=== PATIENT | male | born 1985 | race Caucasian/White ===

== ENCOUNTER 2017-11-12 12:58 | Emergency (ER) | payer MEDICAID ==
[~2017-11-12] VITALS: Ht 180.3 cm; Wt 102.1 kg
[2017-11-12 13:15] VITALS: Ht 180.3 cm; Wt 102.1 kg
[2017-11-12 15:34] LABS: BASOPHIL % 0.7 % (0-2); PLATELET COUNT 247 x10^3mcL (130-400); RED CELL DISTRIBUTION WIDTH 14.4 % (11.5-14.5)
[2017-11-12 15:43] LABS: CALCIUM 8.8 mg/dL (8.5-10.1); CARBON DIOXIDE 29.2 mmol/L (21-32); CHLORIDE SERUM 98 mmol/L (98-107); GFR1 > 60 mL/min; GLUCOSE SERUM 82 mg/dL (74-106); POTASSIUM SERUM 3.5 mmol/L (3.5-5.1); SODIUM SERUM 129 mmol/L (136-145)
[2017-11-12 15:50] LABS: ALBUMIN 3.9 g/dL (3.4-5.0); ALKALINE PHOSPHATASE 56 U/L (46-116); ALT/SGPT 103 U/L (16-63); AST/SGOT 35 U/L (15-37); BILIRUBIN TOTAL 0.56 mg/dL (0.20-1.00); LIPASE 72 IU/L (73-393); TOTAL PROTEIN, SERUM 8.3 g/dL (6.4-8.2)
[2017-11-12 19:04] LABS: CALCIUM 8.1 mg/dL (8.5-10.1); CARBON DIOXIDE 27.2 mmol/L (21-32); CHLORIDE SERUM 103 mmol/L (98-107); CREATININE SERUM 0.9 mg/dL (0.7-1.3); GFR1 > 60 mL/min; GLUCOSE SERUM 85 mg/dL (74-106); POTASSIUM SERUM 3.7 mmol/L (3.5-5.1); SODIUM SERUM 136 mmol/L (136-145)
[2017-11-12 20:29] VITALS: BP 147/65
== END 2017-11-12 20:29 | disposition home or self-care (01) ==
LOC: ED 12:58
PROVIDERS: Emergency Medicine
DX: K22.6 Gastro-esophageal laceration-hemorrhage syndrome (principal)
CPT/HCPCS: C9113; J7030

== ENCOUNTER 2018-01-11 12:27 | Inpatient (IN) | payer MEDICAID ==
[~2018-01-11] VITALS: Ht 177.8 cm; Wt 80.5 kg
[2018-01-11 12:37] VITALS: Ht 177.8 cm; Wt 80.5 kg
[2018-01-11 13:21] LABS: BASOPHIL % 0.3 % (0-2); PLATELET COUNT 269 x10^3mcL (130-400)
[2018-01-11 13:22] LABS: RED CELL DISTRIBUTION WIDTH 15.1 % (11.5-14.5)
[2018-01-11 13:43] LABS: CALCIUM 9.5 mg/dL (8.5-10.1); CARBON DIOXIDE 30.6 mmol/L (21-32); CHLORIDE SERUM 102 mmol/L (98-107); GFR1 > 60 mL/min; GLUCOSE SERUM 70 mg/dL (74-106); POTASSIUM SERUM 3.7 mmol/L (3.5-5.1); SODIUM SERUM 138 mmol/L (136-145)
[2018-01-11 13:49] LABS: ALBUMIN 4.2 g/dL (3.4-5.0); ALKALINE PHOSPHATASE 38 U/L (46-116); ALT/SGPT 87 U/L (16-63); AST/SGOT 219 U/L (15-37); BILIRUBIN TOTAL 0.3 mg/dL (0.20-1.00)
[2018-01-11 13:50] LABS: TOTAL PROTEIN, SERUM 8.4 g/dL (6.4-8.2)
[2018-01-11 13:55] LABS: T3 TOTAL 1.39 ng/mL
[2018-01-11 13:58] LABS: FREE T4 0.97 ng/dL (0.76-1.46); FREE THYROXINE INDEX 2.1 ug/dL (1.4-4.5)
[2018-01-11 15:59] VITALS: BP 121/64
[2018-01-11 16:35] LABS: CHOLESTEROL/HDL RATIO 4.5; PHOSPHOROUS 3.8 mg/dL (2.5-4.9)
[2018-01-11 20:37] LABS: microscopic required? NO
[2018-01-11 21:12] VITALS: BP 107/50
[2018-01-11 21:25] LABS: UA SPECIFIC GRAVITY >=1.030 (1.005-1.035); urine erythrocyte NEGATIVE (NEGATIVE)
[2018-01-11 21:34] LABS: AMPHETAMINE QUAL UR NONE DETECTED (See below)
[2018-01-11 22:40] VITALS: BP 126/46
[2018-01-12 05:07] VITALS: BP 115/60
[2018-01-12 06:59] LABS: BASOPHIL % 0.3 % (0-2); PLATELET COUNT 237 x10^3mcL (130-400)
[2018-01-12 07:12] LABS: CALCIUM 8.6 mg/dL (8.5-10.1); CARBON DIOXIDE 28.2 mmol/L (21-32); CHLORIDE SERUM 103 mmol/L (98-107); CREATININE SERUM 0.8 mg/dL (0.7-1.3); GFR1 > 60 mL/min; GLUCOSE SERUM 107 mg/dL (74-106); POTASSIUM SERUM 4.1 mmol/L (3.5-5.1); SODIUM SERUM 136 mmol/L (136-145)
[2018-01-12 07:33] LABS: RED CELL DISTRIBUTION WIDTH 14.9 % (11.5-14.5)
[2018-01-12 08:50] VITALS: BP 139/94
[2018-01-12 13:10] VITALS: BP 127/43
[2018-01-12 18:00] VITALS: BP 130/71
[2018-01-12 21:35] VITALS: BP 113/56
[2018-01-13 04:51] VITALS: BP 108/51
[2018-01-13 07:21] LABS: CALCIUM 8.5 mg/dL (8.5-10.1); CARBON DIOXIDE 26.7 mmol/L (21-32); CHLORIDE SERUM 106 mmol/L (98-107); CREATININE SERUM 0.9 mg/dL (0.7-1.3); GFR1 > 60 mL/min; GLUCOSE SERUM 103 mg/dL (74-106); SODIUM SERUM 139 mmol/L (136-145)
[2018-01-13 08:49] VITALS: BP 143/68
[2018-01-13 10:04] LABS: ALBUMIN 3.4 g/dL (3.4-5.0); BILIRUBIN DIRECT 0.09 mg/dL (0.0-0.2); BILIRUBIN TOTAL 0.3 mg/dL (0.20-1.00); TOTAL PROTEIN, SERUM 6.8 g/dL (6.4-8.2)
[2018-01-13 12:00] VITALS: BP 126/77
[2018-01-13 15:56] VITALS: BP 136/73
[2018-01-13 20:25] VITALS: BP 132/84
[2018-01-14 04:54] VITALS: BP 112/45
[2018-01-14 06:30] LABS: CALCIUM 8.8 mg/dL (8.5-10.1); CARBON DIOXIDE 27.7 mmol/L (21-32); CHLORIDE SERUM 105 mmol/L (98-107); CREATININE SERUM 0.8 mg/dL (0.7-1.3); GFR1 > 60 mL/min; GLUCOSE SERUM 103 mg/dL (74-106); PLATELET COUNT 218 x10^3mcL (130-400); POTASSIUM SERUM 3.8 mmol/L (3.5-5.1); SODIUM SERUM 140 mmol/L (136-145)
[2018-01-14 07:04] LABS: RED CELL DISTRIBUTION WIDTH 14.9 % (11.5-14.5)
[2018-01-14 07:30] VITALS: BP 136/81
[2018-01-14 11:17] VITALS: BP 136/81
[2018-01-14] MEDS ORDERED: BEN50 PO (11:45)
[2018-01-14] MEDS ORDERED: ACETAMINOPHEN-H1 TA1 PO (11:47)
[2018-01-14 14:21] LABS: BAND NEUTROPHIL 14 % (0-10); SEGMENTED NEUTROPHILS 24 % (37-75)
[2018-01-14 14:22] LABS: ATYPICAL LYMPH 4 %; BASOPHIL 0 % (0-2); MONOCYTE 59 % (0-7); PLATELET MORPHOLOGY PLATELETS NORMAL; rbc morphology (normal/abnorm) ABNORMAL (NORMAL)
== END 2018-01-14 15:15 | disposition home or self-care (01) | DRG 351 ==
LOC: ED 12:27 → DU 14:56 → MU 14:56 → DU 15:45 → MU 01-14 09:44
PROVIDERS: Emergency Medicine; Internal Medicine
DX: M62.82 Rhabdomyolysis (principal); E78.5 Hyperlipidemia, unspecified; F14.10 Cocaine abuse, uncomplicated; F12.10 Cannabis abuse, uncomplicated; R74.0 Nonspecific elevation of levels of transaminase and lactic acid dehydrogenase [LDH]; Z68.32 Body mass index [BMI] 32.0-32.9, adult
CPT/HCPCS: 36600; 83880; 84439; C9113; G0480; J2270; J3490; J7030; Q0092; Q0163

== ENCOUNTER 2018-03-09 12:22 | Emergency (ER) | payer OTHER ==
[~2018-03-09] VITALS: Ht 177.8 cm; Wt 99.8 kg
[~2018-03-09 12:22] MED LIST: ACETAMINOPHEN-H1 TA1 PO; BEN50 PO
[2018-03-09 12:32] VITALS: Ht 177.8 cm; Wt 99.8 kg
[2018-03-09 15:28] VITALS: BP 134/76
== END 2018-03-09 15:28 | disposition short-term general hospital (02) ==
LOC: ED 12:22
DX: S02.81XA Fracture of other specified skull and facial bones, right side, initial encounter for closed fracture (principal); S02.40CA Maxillary fracture, right side, initial encounter for closed fracture; S00.33XA Contusion of nose, initial encounter; S60.811A Abrasion of right wrist, initial encounter; X58.XXXA Exposure to other specified factors, initial encounter; Y93.89 Activity, other specified; Y92.89 Other specified places as the place of occurrence of the external cause; Y99.8 Other external cause status

== ENCOUNTER 2018-03-09 12:22 | Emergency (ER) | payer OTHER | END 2018-03-09 15:28 | disposition short-term general hospital (02) | LOC: ED 12:22 | DX: Z02.89 Encounter for other administrative examinations (principal) ==

== ENCOUNTER 2018-03-17 17:11 | Emergency (ER) | payer OTHER ==
[~2018-03-17] VITALS: Ht 177.8 cm; Wt 105.2 kg
[2018-03-17 17:21] VITALS: BP 147/96; Ht 177.8 cm; Wt 105.2 kg
== END 2018-03-17 19:46 | disposition left against medical advice (07) ==
LOC: ED 17:11
DX: Z53.21 Procedure and treatment not carried out due to patient leaving prior to being seen by health care provider (principal)

== ENCOUNTER 2018-06-29 12:06 | Emergency (ER) | payer OTHER ==
[~2018-06-29] VITALS: Ht 177.8 cm; Wt 106.1 kg
[2018-06-29 12:29] VITALS: Ht 177.8 cm; Wt 106.1 kg
[2018-06-29 14:31] LABS: CALCIUM 8.8 mg/dL (8.5-10.1); CHLORIDE SERUM 104 mmol/L (98-107); CREATININE SERUM 0.9 mg/dL (0.7-1.3); GFR1 > 60 mL/min; GLUCOSE SERUM 94 mg/dL (74-106); SODIUM SERUM 140 mmol/L (136-145)
[2018-06-29 15:10] VITALS: BP 141/77
== END 2018-06-29 15:10 | disposition home or self-care (01) ==
LOC: ED 12:06
PROVIDERS: Emergency Medicine
DX: R55 Syncope and collapse (principal); J01.90 Acute sinusitis, unspecified; J02.9 Acute pharyngitis, unspecified